=== PATIENT | male | born 1950 | race Caucasian/White ===

== ENCOUNTER 2017-05-14 12:51 | Emergency (ER) | payer BC ==
[~2017-05-14] VITALS: Ht 182.9 cm; Wt 104.3 kg
[2017-05-14 13:00] VITALS: BP 138/78
[2017-05-14] MEDS ORDERED: LIDOCAINE 1%/EPI 1:100,000 20 ML VIAL. INJ ONE (13:30)
[2017-05-14] MEDS ORDERED: DIPHTH,PERTUSS(ACELL),TET TOX 0.5 ML DISP.SYRIN. VAX IM ONE (13:30)
[2017-05-14] MEDS ORDERED: LIDOCAINE 2%/EPI 1:100,000 20 ML VIAL. IJ ONE (14:30)
--- NOTE | 2017-05-14 15:22 | PHYS DOC ---
Past Medical History Past Medical History: CAD, High Cholesterol, Hypertension, [place] Past Surgical History: Appendectomy, Other Additional Past Surgical Histo: hernia, cardiac stents Alcohol Use: Occasionally Drug Use: None Adult General Chief Complaint Chief Complaint: LACERATION/AVULSION HPI HPI Patient is a 66 year old left hand laceration. Patient states he got cut by a knife he was "messing with". Patient is right-handed. Review of Systems Review of Systems Constitutional: Denies fever or chills [] Musculoskeletal: Denies back pain or joint pain [] Integument: Left hand laceration Neurologic: Denies headache, focal weakness or sensory changes [] All other systems were reviewed and found to be within normal limits, except as documented in this note. Current Medications Current Medications Current Medications Medications (Trade) Dose Ordered Sig/Demar Start Time Stop Time Status Last Admin Dose Admin Diphtheria/ Tetanus/Acell Pertussis (Boostrix) 0.5 ml ONCE ONCE 05/14/17 13:30 05/14/17 13:31 DC 05/14/17 13:27 0.5 ML Lidocaine/ Epinephrine (Xylocaine 1%-Epi 1:100,000) 20 ml 1X ONCE 05/14/17 13:30 05/14/17 13:31 DC 05/14/17 13:26 20 ML Lidocaine/ Epinephrine (Xylocaine 2%-Epi 1:100,000) 20 ml 1X ONCE 05/14/17 14:30 05/14/17 14:31 DC Allergies Allergies Allergies Coded Allergies Type Severity Reaction Last Updated Verified codeine Adverse Reaction Mild nausea 09/12/15 Yes Physical Exam Physical Exam Constitutional: Well developed, well nourished, no acute distress, non-toxic appearance. [] Skin: Warm, left hand between the thumb and the index finger metacarpal with a laceration is not deep approximately 6 x 0.2 cm. Bleeding is well controlled. No obvious tendon involvement. Full range of motion to the left hand and fingers. +2 left radial pulse. Cap refill less than 2 seconds the left hand. Adequate radial medial and ulnar sensation to the left hand. Extremities: No tenderness, no cyanosis, no clubbing, ROM intact, no edema. [] Neurologic: Alert and oriented X 3, normal motor function, normal sensory function, no focal deficits noted. [] Psychologic: Affect normal, judgement normal, mood normal. [] Current Patient Data Vital Signs Vital Signs Date Time Temp Pulse Resp B/P (MAP) Pulse Ox O2 Delivery O2 Flow Rate FiO2 05/14/17 13:00 97.5 78 16 96 Room Air 97.5 EKG EKG [] Radiology/Procedures Radiology/Procedures Indication: []Left hand laceration Procedure: The patient was placed in the appropriate position and anesthesia around the laceration was 1% of lidocaine with epinephrine. The laceration was explored for foreign objects, none was found. The laceration was cleaned with 100 ML of normal saline and then later Betadine. The laceration was closed with 12 interrupted sutures using 5. 0 Ethilon. Wound was covered with nonstick dressing. Course & Med Decision Making Course & Med Decision Making Pertinent Labs and Imaging studies reviewed. (See chart for details) Patient has left hand laceration that was closed by me as noted in procedures. Provided wound care instructions as well as return precautions. Follow-up with the ED or PCP in 7-10 days for suture removal. Dragon Disclaimer Dragon Disclaimer This electronic medical record was generated, in whole or in part, using a voice recognition dictation system. Departure Departure Impression: Primary Impression: Laceration of left hand Disposition: HOME, SELF-CARE Condition: STABLE Referrals: INGRID ELKINS MD (PCP) follow up with your doctor in 7-10 days for suture removal Patient Instructions: Laceration Care, Adult Additional Instructions: You were seen with left hand laceration that was closed with stitches. Keep the area clean and dry. Follow-up with your doctor or the emergency room in 7-10 days to have the stitches removed. Ice and elevate the extremity. Problem Qualifiers Primary Impression: Laceration of left hand Encounter type: initial encounter Foreign body presence: unspecified Qualified Codes: S61.412A - Laceration without foreign body of left hand, initial encounter LAUREENYONY BURDICK [employer]ER May 14, 2017 15:22
== END 2017-05-14 15:26 | disposition home or self-care (01) ==
LOC: ER 12:51
DX: S61.412A Laceration without foreign body of left hand, initial encounter (principal); I25.10 Atherosclerotic heart disease of native coronary artery without angina pectoris; E78.00 Pure hypercholesterolemia, unspecified; I10 Essential (primary) hypertension; I25.2 Old myocardial infarction; Z95.5 Presence of coronary angioplasty implant and graft; Z88.5 Allergy status to narcotic agent; W26.0XXA Contact with knife, initial encounter; Y93.89 Activity, other specified; Y92.89 Other specified places as the place of occurrence of the external cause; Y99.8 Other external cause status
CPT/HCPCS: 12002; 90471; 90715; 99283; J3490